=== PATIENT | male | born 1950 | race Caucasian/White ===

== ENCOUNTER 2016-10-16 09:45 | Outpatient (CLI) | payer MEDICARE, OTHER ==
[2015-03-25 14:20] VITALS: BP 153/65
[2016-10-16 12:17] LABS: eGFR (African) > 60; eGFR (Non-African) > 60
== END 2016-10-16 09:46 ==
LOC: LAB 09:45
PROVIDERS: ATTEND Nurse Practitioner
DX: E11.9 Type 2 diabetes mellitus without complications (principal)
CPT/HCPCS: 36415; 80053; 83036

== ENCOUNTER 2016-11-03 16:27 | Outpatient (CLI) | payer MEDICARE, OTHER ==
[2015-03-25 14:20] VITALS: BP 153/65
--- NOTE | 2016-11-03 17:20 | Diagnostic Imaging Report ---
[facility] [id number] [facility].[address] [address] Report Submission Date: Nov 03, 2016 5:13:29 PM CDT Patient Study Name: ANAND KIMBROUGH Date: Nov 03, 2016 4:35:39 PM CDT Modality Type: CR Gender: M Description: CHEST : 50 Institution: [facility] Physician: DILLON DOMINIQUE Chest PA and lateral views Clinical history: Cough and dyspnea for 1 month Normal heart shadow with atherosclerotic thoracic aorta. Status post CABG. No acute infiltrates or pleural effusion. Normal bony thorax. Impression: No active pulmonary pathology Electronically signed on Nov 03, 2016 5:13:29 PM CDT by: Jose J CHAVIRA
== END 2016-11-03 16:30 ==
LOC: RAD 16:27
PROVIDERS: ATTEND Physician Assistant
DX: R06.02 Shortness of breath (principal)
CPT/HCPCS: 71020

== ENCOUNTER 2016-11-10 09:16 | Outpatient (CLI) | payer MEDICARE, OTHER ==
[2015-03-25 14:20] VITALS: BP 153/65
[2016-11-10] MEDS ORDERED: ALBUTEROL SULFATE 2.5 MG/3 ML AMPUL.NEB NEB ONE (09:37)
== END 2016-11-10 09:17 ==
LOC: RT 09:16
PROVIDERS: ATTEND Physician Assistant
DX: R06.02 Shortness of breath (principal)
CPT/HCPCS: 94060

== ENCOUNTER 2016-11-11 14:07 | Outpatient (CLI) | payer MEDICARE, OTHER ==
[2015-03-25 14:20] VITALS: BP 153/65
== END 2016-11-11 14:10 ==
LOC: CARD 14:07
PROVIDERS: ATTEND Internal Medicine Cardiovascular Disease
DX: I25.10 Atherosclerotic heart disease of native coronary artery without angina pectoris (principal); R07.9 Chest pain, unspecified; I10 Essential (primary) hypertension; E78.5 Hyperlipidemia, unspecified; E11.9 Type 2 diabetes mellitus without complications
CPT/HCPCS: G0463

== ENCOUNTER 2017-01-30 09:16 | Outpatient (CLI) | payer MEDICARE, OTHER ==
[2015-03-25 14:20] VITALS: BP 153/65
[2017-01-30 10:21] LABS: eGFR (African) > 60; eGFR (Non-African) > 60
== END 2017-01-30 09:17 ==
LOC: LAB 09:16
PROVIDERS: ATTEND Nurse Practitioner
DX: E11.9 Type 2 diabetes mellitus without complications (principal)
CPT/HCPCS: 36415; 80053; 80061; 83036

== ENCOUNTER 2017-04-28 14:42 | Outpatient (CLI) | payer MEDICARE, OTHER ==
[2015-03-25 14:20] VITALS: BP 153/65
== END 2017-04-28 14:43 ==
LOC: CARD 14:42
PROVIDERS: ATTEND Internal Medicine Cardiovascular Disease
DX: I25.10 Atherosclerotic heart disease of native coronary artery without angina pectoris (principal); I10 Essential (primary) hypertension; E78.5 Hyperlipidemia, unspecified; E11.9 Type 2 diabetes mellitus without complications; E66.9 Obesity, unspecified; G47.30 Sleep apnea, unspecified
CPT/HCPCS: G0463

== ENCOUNTER 2017-05-04 08:28 | Outpatient (CLI) | payer MEDICARE, OTHER ==
[2015-03-25 14:20] VITALS: BP 153/65
[2017-05-04 09:24] LABS: eGFR (African) > 60; eGFR (Non-African) > 60
== END 2017-05-04 08:30 ==
LOC: LAB 08:28
PROVIDERS: ATTEND Nurse Practitioner
DX: E11.9 Type 2 diabetes mellitus without complications (principal)
CPT/HCPCS: 36415; 80053; 83036

== ENCOUNTER 2017-06-11 14:09 | Outpatient (CLI) | payer MEDICARE, OTHER ==
[2015-03-25 14:20] VITALS: BP 153/65
== END 2017-06-11 14:10 ==
LOC: LAB 14:09
PROVIDERS: ATTEND Family Medicine
DX: E79.0 Hyperuricemia without signs of inflammatory arthritis and tophaceous disease (principal)
CPT/HCPCS: 36415; 84550

== ENCOUNTER 2017-11-03 10:46 | Outpatient (CLI) | payer MEDICARE, OTHER ==
[2015-03-25 14:20] VITALS: BP 153/65
[2017-11-03 11:48] LABS: eGFR (African) > 60; eGFR (Non-African) > 60
== END 2017-11-03 11:50 ==
LOC: LAB 10:46
PROVIDERS: ATTEND Nurse Practitioner
DX: E11.65 Type 2 diabetes mellitus with hyperglycemia (principal)
CPT/HCPCS: 36415; 80053; 80061; 83036

== ENCOUNTER 2017-12-03 | Outpatient (CLI) | payer MEDICARE, OTHER | END 2017-12-03 08:50 | CPT/HCPCS: G0463 ==

== ENCOUNTER 2018-02-02 12:23 | Outpatient (CLI) | payer MEDICARE, OTHER ==
[2015-03-25 14:20] VITALS: BP 153/65
== END 2018-02-02 12:24 ==
LOC: CARD 12:23
PROVIDERS: ATTEND Internal Medicine Cardiovascular Disease
DX: I25.10 Atherosclerotic heart disease of native coronary artery without angina pectoris (principal); I10 Essential (primary) hypertension; E78.5 Hyperlipidemia, unspecified; E11.9 Type 2 diabetes mellitus without complications
CPT/HCPCS: G0463

== ENCOUNTER 2018-02-08 10:18 | Day surgery (SDC) | payer MEDICARE, OTHER ==
[2015-03-25 14:20] VITALS: BP 153/65
[2018-02-08] MEDS ORDERED: PROPOFOL 500 MG/50 ML VIAL IV ONE (10:19)
[2018-02-08] MEDS ORDERED: LACTATED RINGERS 1,000 ML IV.SOLN IV ONE (10:19)
[2018-02-08] MEDS ORDERED: SALINE FLUSH 10 ML DISP.SYRIN IVF ONE (10:19)
--- NOTE | 2018-02-11 11:22 | GI Report ---
REFERRING PHYSICIAN: Dr. Jose J Turner CRITICAL CARE PARAMEDIC: Cruzito Hughes MD PROCEDURE MEDICATION: Propofol as per anesthesia. INDICATIONS: This is a 67-year-old man with metabolic syndrome and a number of health issues who has had a recent change in bowel habits with blood in the stool. He is referred for the above indications. He is 5 feet 5 inches and weighs 127 kilograms. He has significant central obesity. PROCEDURE PERFORMED: Colonoscopy. PROCEDURE: On rectal exam, patient has some prolapsed hemorrhoids. It looks like there has been a recent thrombosed hemorrhoid. There is some fresh blood there in a clot. It is soft. I do not feel any irregular hard areas there. The Olympus video colonoscope was advanced to the rectum. He does have moderate diverticular disease of the sigmoid colon. A very atonic redundant colon and it took some nurse compression to finally reach the base of the cecum. The appendiceal orifice and ileocecal valve looked normal. On slow withdrawal, the cecum, ascending colon, and transverse colon with a lot of redundancy. No obvious intraluminal lesions noted. Descending colon with a lot of redundancy. Sigmoid with moderate severe diverticular disease but no obvious diverticulitis. Retroflexion of the rectum shows he has both internal and prolapsed external hemorrhoids and there is some fresh blood in that area. FINDINGS: 1. Diverticular disease of the colon. 2. Atonic redundant colon. RECOMMENDATIONS: 1. Again with his metabolic syndrome, I would recommend adding Metamucil or Benefiber or Citrucel daily. 2. Cut back on his white carbohydrates. 3. Possible referral to colorectal surgeon to see if they could band the hemorrhoids in their office. 4. Consider re-looking at his colon in 5 to 10 years, sooner if clinically indicated. cc: Dr. Jose J CHAVIRA
== END 2018-02-08 10:20 ==
LOC: OPSURG 10:18
PROVIDERS: ATTEND Internal Medicine Gastroenterology
DX: K57.31 Diverticulosis of large intestine without perforation or abscess with bleeding (principal); K59.8 Other specified functional intestinal disorders; E88.81 Metabolic syndrome and other insulin resistance; R19.4 Change in bowel habit
CPT/HCPCS: J2704; J7120; 45378; S1016

== ENCOUNTER 2018-05-17 08:17 | Outpatient (CLI) | payer MEDICARE, OTHER ==
[2015-03-25 14:20] VITALS: BP 153/65
== END 2018-05-17 08:20 ==
LOC: LAB 08:17
PROVIDERS: ATTEND Nurse Practitioner
DX: E11.65 Type 2 diabetes mellitus with hyperglycemia (principal)
CPT/HCPCS: 36415; 80061

== ENCOUNTER 2019-07-06 14:15 | Outpatient (CLI) | payer OTHER ==
[2015-03-25 14:20] VITALS: BP 153/65
[2019-07-06 15:05] LABS: eGFR (Non-African) > 60
[2019-07-06 15:19] LABS: BASOPHILS % 0.5 % (0.0-1.5); NEUTROPHILS # 3.1 # k/uL (1.4-7.7); SEGMENTED NEUTROPHILS % 49 % (39-79)
[2019-07-06 15:21] LABS: HYPOCHROMASIA 1+ (NEGATIVE)
== END 2019-07-06 14:20 ==
LOC: LAB 14:15
PROVIDERS: ATTEND Family Medicine
DX: R10.9 Unspecified abdominal pain (principal)
CPT/HCPCS: 36415; 80053; 85025

== ENCOUNTER 2019-07-13 09:58 | Outpatient (CLI) | payer OTHER ==
[2015-03-25 14:20] VITALS: BP 153/65
== END 2019-07-13 10:03 ==
LOC: LAB 09:58
PROVIDERS: ATTEND Family Medicine
DX: E83.52 Hypercalcemia (principal)
CPT/HCPCS: 36415; 83970